=== PATIENT | female | born 1980 | race Caucasian/White ===

== ENCOUNTER 2022-11-13 05:30 | Inpatient (IN) | payer MEDICAID ==
[2022-11-09 11:00] LABS: BASOPHILS % (AUTO) 0.8 % (0.0-2.0); EOSINOPHILS # (AUTO) 0.1 K/uL (0.0-0.4); EOSINOPHILS % (AUTO) 1.9 % (0.0-4.0); HEMATOCRIT 29.6 % (36-48); LYMPHOCYTES # (AUTO) 1.6 K/uL (1.0-5.5); MEAN CORPUSCULAR HEMOGLOBIN 19 pg (27-31); MEAN CORPUSCULAR HGB CONC 31 % (32-36); MEAN CORPUSCULAR VOLUME 62 fL (79.0-98.0); MONOCYTES # (AUTO) 0.5 K/uL (0.0-1.0); MONOCYTES % (AUTO) 9.3 % (1.7-9.3); NEUTROPHILS # (AUTO) 2.9 K/uL (1.8-7.7); PLATELET COUNT (AUTO) 428 K/uL (130-430); RED BLOOD CELL COUNT(AUTO) 4.76 MIL/uL (4.2-6.2); RED CELL DISTRIBUTION WIDTH 19.3 % (9.0-15.0)
[2022-11-09 12:05] LABS: ALBUMIN 3.8 g/dL (3.4-4.8); CALCIUM 8.1 mg/dL (8.4-11.0); CREATININE 0.69 mg/dL (0.55-1.30); TOTAL BILIRUBIN 0.8 mg/dL (0.0-1.0)
[~2022-11-13] VITALS: Ht 160 cm; Wt 85.3 kg
[2022-11-13 06:35] LABS: HCG,QUAL RESULT NEGATIVE (NEGATIVE)
[2022-11-13] MEDS ORDERED: BUPIVACAINE LIPOSOME/PF 266 MG/20 ML VIAL INFIL ONE (07:30)
[2022-11-13] MEDS ORDERED: HYDROmorphone 2 MG/ML VIAL IVP PRN ×2 (08:15→09:00)
[2022-11-13] MEDS ORDERED: LR 1,000 ML IV SCH (08:15)
[2022-11-13] MEDS ORDERED: OXYCODONE/ACETAMINOPHEN 5-325 TABLET PO PRN ×2 (08:15)
[2022-11-13] MEDS ORDERED: BISACODYL 10 MG/SUPPOSITORY RC PRN (08:15)
[2022-11-13] MEDS ORDERED: HYDROmorphone 1 MG/ML INJ. CARTRIDGE IVP PRN (09:00)
[2022-11-13] MEDS: DOCUSATE SODIUM 100 MG CAPSULE PO SCH ×2 (09:00→20:45)
[2022-11-13] MEDS ORDERED: METOCLOPRAMIDE HCL 10 MG/2 ML VIAL IVP PRN (09:00)
[2022-11-13] MEDS ORDERED: NALOXONE HCL 0.4 MG/ML AMP (NARCAN) IVP PRN ×2 (09:00)
[2022-11-13] MEDS ORDERED: ONDANSETRON HCL 4 MG/2 ML VIAL IVP PRN ×2 (09:00→13:45)
[2022-11-13 09:19] VITALS: BP_SYST 115
[2022-11-13 09:39] LABS: BASOPHILS % (AUTO) 0.4 % (0.0-2.0); EOSINOPHILS % (AUTO) 0.5 % (0.0-4.0); HEMATOCRIT 26.1 % (36-48); HEMOGLOBIN 7.9 g/dL (12.0-16.0); LYMPHOCYTES # (AUTO) 1.5 K/uL (1.0-5.5); LYMPHOCYTES % (AUTO) 17.4 % (20.5-51.5); MEAN CORPUSCULAR HEMOGLOBIN 19 pg (27-31); MEAN CORPUSCULAR HGB CONC 30 % (32-36); MEAN CORPUSCULAR VOLUME 63 fL (79.0-98.0); MONOCYTES # (AUTO) 0.3 K/uL (0.0-1.0); MONOCYTES % (AUTO) 3.1 % (1.7-9.3); NEUTROPHILS % (AUTO) 78.6 % (40.0-70.0); PLATELET COUNT (AUTO) 415 K/uL (130-430); RED BLOOD CELL COUNT(AUTO) 4.16 MIL/uL (4.2-6.2); RED CELL DISTRIBUTION WIDTH 19.5 % (9.0-15.0); WHITE BLOOD COUNT (AUTO) 8.9 K/uL (4.8-10.8)
[2022-11-13] MEDS: HYDROmorphone 1 MG/ML INJ. CARTRIDGE IVP PRN ×2 (09:40→09:55)
[2022-11-13] MEDS ORDERED: HYDROmorphone 1 MG/ML INJ. CARTRIDGE ONE (09:40)
[2022-11-13] MEDS ORDERED: ONDANSETRON HCL 4 MG/2 ML VIAL ONE (09:45)
[2022-11-13] MEDS: KETOROLAC TROMETHAMINE 30 MG VIAL IVP PRN ×2 (11:56→17:51)
[2022-11-13] MEDS ORDERED: METOCLOPRAMIDE HCL 10 MG/2 ML VIAL IVP ONE (14:00)
[2022-11-13] MEDS ORDERED: PROPOFOL 200MG/ 20ML VIAL (DIPRIVAN) IV ONE (18:45)
[2022-11-13] MEDS ORDERED: HYDROmorphone 2 MG/ML VIAL IVP ONE (18:45)
[2022-11-13] MEDS ORDERED: SEVOFLURANE 15 MIN GAS INH ONE (18:45)
[2022-11-13] MEDS ORDERED: ROCURONIUM BROMIDE 10 MG/ML (ZEMURON) IV ONE (18:45)
[2022-11-13] MEDS ORDERED: BUPIVACAINE /PF 0.5% 30 ML VIAL INJ ONE (18:45)
[2022-11-13] MEDS ORDERED: ePHEDrine sulfate 50 MG/ML VIAL IVP ONE (18:45)
[2022-11-13] MEDS ORDERED: SUGAMMADEX SODIUM 200 MG/2 ML VIAL IV ONE (18:45)
[2022-11-13] MEDS ORDERED: WATER FOR IRRIGATION,STERILE 1,000 ML IRRIG.SOLN IR ONE (18:45)
[2022-11-13] MEDS ORDERED: LR 1,000 ML IV.SOLN IV ONE (18:45)
[2022-11-13] MEDS ORDERED: MIDAZOLAM HCL 5 MG/5 ML VIAL IVP ONE (18:45)
[2022-11-13] MEDS: SIMETHICONE 80 MG TAB.CHEW PO PRN (20:45)
[2022-11-13] MEDS ORDERED: TEMAZEPAM 15 MG CAPSULE PO PRN (21:00)
[2022-11-14] MEDS: IBUPROFEN 800 MG TABLET PO PRN ×2 (00:01→06:23)
[2022-11-14] MEDS: SIMETHICONE 80 MG TAB.CHEW PO PRN ×2 (06:23)
[2022-11-14 07:43] LABS: BASOPHILS % (AUTO) 0.3 % (0.0-2.0); EOSINOPHILS % (AUTO) 0.3 % (0.0-4.0); LYMPHOCYTES # (AUTO) 1.8 K/uL (1.0-5.5); LYMPHOCYTES % (AUTO) 19.3 % (20.5-51.5); MEAN CORPUSCULAR HEMOGLOBIN 19 pg (27-31); MEAN CORPUSCULAR HGB CONC 31 % (32-36); MEAN CORPUSCULAR VOLUME 62 fL (79.0-98.0); MONOCYTES # (AUTO) 0.8 K/uL (0.0-1.0); MONOCYTES % (AUTO) 8.2 % (1.7-9.3); NEUTROPHILS # (AUTO) 6.8 K/uL (1.8-7.7); NEUTROPHILS % (AUTO) 71.9 % (40.0-70.0); PLATELET COUNT (AUTO) 389 K/uL (130-430); RED BLOOD CELL COUNT(AUTO) 3.49 MIL/uL (4.2-6.2); RED CELL DISTRIBUTION WIDTH 19.4 % (9.0-15.0); WHITE BLOOD COUNT (AUTO) 9.4 K/uL (4.8-10.8)
[2022-11-14 08:12] LABS: HEMATOCRIT 21.6 % (36-48); HEMOGLOBIN 6.8 g/dL (12.0-16.0)
== END 2022-11-14 10:35 | disposition home or self-care (01) | DRG 519 ==
LOC: SMU 05:30 → SPU 10:08
PROVIDERS: ADMIT Obstetrics & Gynecology; ATTEND Obstetrics & Gynecology
PROC: 0UT90ZL Resection of Uterus, Supracervical, Open Approach (ICD-10-PCS; principal; 2022-11-13 07:57)
DX: D25.1 Intramural leiomyoma of uterus (principal); R71.0 Precipitous drop in hematocrit; D26.0 Other benign neoplasm of cervix uteri; Z20.822 Contact with and (suspected) exposure to COVID-19
CPT/HCPCS: 36415; 80053; 84703; 85025; 86886; 86900; 86901; 86920; 87081; 88307; 93005; C9290; J1170; J1885; J2250; J2405; J2704; J2765; J3490; J7120; U0003